=== PATIENT | female | born 2000 | race Caucasian/White ===

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

== ENCOUNTER 2021-11-06 13:08 | Inpatient (IN) ==
[2021-11-06 14:14] LABS: Urine Benzodiazepine Screen None Detected (None Detect); Urine Cannabinoids Screen None Detected (None Detect); Urine Opiates Screen None Detected (None Detect)
[2021-11-06] MEDS ORDERED: Lactated Ringers 1000 ml BAG 1,000 ML IV ONE (14:19)
[2021-11-06] MEDS ORDERED: Buffered Lidocaine 1% SYRIN 1 ml INTRADERM ONE (14:19)
[2021-11-06] MEDS ORDERED: Lactated Ringers 1000 ml BAG 1,000 ML IV SCH (15:00)
[2021-11-06] MEDS: Buprenorp/Nalox 8-2 MG SL TAB SL SCH (16:30)
[2021-11-06 17:27] LABS: ABS Basophils 0.1 10^3/ul (0-0.2); ABS Eosinophils 0.1 10^3/ul (0-0.6); ABS Lymphocytes 2.3 10^3/ul (1.0-4.8); ABS Monocytes 0.7 10^3/ul (0-0.8); ABS Neutrophils 7.4 10^3/ul (1.5-7.7); Eosinophil % 0.8 %; Hematocrit 37 % (35-47); Hemoglobin 12.7 g/dL (12.0-16.0); Lymphocyte % 21.7 %; Mean Corpuscular HGB Conc 35 g/dL (31-36); Mean Corpuscular Hemoglobin 32 pg (27-31); Mean Corpuscular Volume 91 fL (80-97); Mean Platelet Volume 8.3 fL (7.4-10.4); Nucleated Red Blood Cells % 0.1; Platelet Count 202 10^3/uL (150-450); Red Blood Count 4.02 10^6 /uL (3.70-4.87); Red Cell Distribution Width 14 % (10-15); White Blood Count 10.6 10^3/uL (3.5-10.8)
[2021-11-06] MEDS: Nicotine PATCH 7 MG/24 HR PATCH TRANSDERM SCH (20:06)
[2021-11-06] MEDS ORDERED: OBEPIDURAL 250 ML EPIDURAL ONE (23:04)
[2021-11-06] MEDS ORDERED: Lidocaine 2% w/ EPI 1:200,000 MPF 20 ML SDV VIAL ONE (23:39)
[2021-11-07] MEDS: Buprenorp/Nalox 8-2 MG SL TAB SL SCH ×4 (00:02→21:14)
[2021-11-07 02:04] LABS: Urine Appearance Cloudy; Urine Color Yellow; Urine Ketones Negative (Negative); Urine Protein 2+(100 mg/dL) (Negative); Urine Specific Gravity 1.005 (1.002-1.030); Urine Urobilinogen Negative (Negative)
[2021-11-07 02:05] LABS: Urine Bilirubin 1+ (Negative); Urine Blood 2+ (Negative); Urine Glucose Negative (Negative); Urine Nitrite Negative (Negative)
[2021-11-07 02:08] LABS: Urine Bacteria Absent (Absent); Urine Red Blood Cell 3+(>10/hpf) (Absent); Urine Squamous Epithelial Cell Present (Absent); Urine White Blood Cell Trace(0-5/hpf) (Absent)
[2021-11-07] MEDS ORDERED: fentaNYL 100 mcg/2 ml 50 MCG/ML VIAL ONE (08:54)
[2021-11-07] MEDS ORDERED: Oxytocin in LR 20 UNITS/1,000 ML BAG IVPB ONE (09:29)
[2021-11-07] MEDS ORDERED: Lactated Ringers 1000 ml BAG 1,000 ML IV SCH (13:00)
[2021-11-07] MEDS ORDERED: Oxytocin in LR 20 UNITS/1,000 ML BAG IVPB SCH (13:00)
[2021-11-07] MEDS: Nicotine PATCH 7 MG/24 HR PATCH TRANSDERM SCH (14:05)
[2021-11-07] MEDS: Dibucaine 1% OINT 28.35 GM TUBE PR PRN (14:31)
[2021-11-07] MEDS: Witch Hazel PAD JAR TOPICAL PRN (14:31)
[2021-11-07] MEDS ORDERED: Lidocaine 1% VIAL 10 MG/ML VIAL ONE (15:47)
[2021-11-08 07:54] LABS: ABS Basophils 0.1 10^3/ul (0-0.2); ABS Lymphocytes 2.7 10^3/ul (1.0-4.8); ABS Monocytes 0.7 10^3/ul (0-0.8); ABS Neutrophils 8.9 10^3/ul (1.5-7.7); Eosinophil % 0.3 %; Hematocrit 33 % (35-47); Hemoglobin 11.1 g/dL (12.0-16.0); Lymphocyte % 21.3 %; Mean Corpuscular HGB Conc 34 g/dL (31-36); Mean Corpuscular Hemoglobin 32 pg (27-31); Mean Corpuscular Volume 93 fL (80-97); Mean Platelet Volume 8.1 fL (7.4-10.4); Platelet Count 173 10^3/uL (150-450); Red Blood Count 3.53 10^6 /uL (3.70-4.87); Red Cell Distribution Width 14 % (10-15); White Blood Count 12.4 10^3/uL (3.5-10.8)
[2021-11-08] MEDS: Nicotine PATCH 7 MG/24 HR PATCH TRANSDERM SCH (09:09)
[2021-11-08] MEDS: Buprenorp/Nalox 8-2 MG SL TAB SL SCH ×2 (09:11→16:16)
[2021-11-08] MEDS: Dibucaine 1% OINT 28.35 GM TUBE PR PRN ×2 (12:18→16:32)
[2021-11-08 12:40] VITALS: BP 127/77
[2021-11-08] MEDS: Witch Hazel PAD JAR TOPICAL PRN (16:32)
== END 2021-11-08 18:37 | disposition home or self-care (01) | DRG 560 ==
LOC: MCHOBOUT 13:08 → MCHOB 14:15
PROVIDERS: ADMIT Midwife; ATTEND Midwife

== ENCOUNTER 2024-10-23 21:47 | Inpatient (IN) ==
[2024-10-23] MEDS ORDERED: Lidocaine 1% VIAL 10 MG/ML 30 ML VIAL INJ PRN (23:15)
[2024-10-24] MEDS: Lactated Ringers 1000 ml BAG 1,000 ML IV ONE ×2 (00:16→20:41)
[2024-10-24] MEDS: Penicillin G Potassium IV 5,000,000 UNITS in NS 0.9% 100 ml BAG 100 ML IVPB ONE (00:16)
[2024-10-24] MEDS: Buffered Lidocaine 1% SYRIN 1 ml INTRADERM ONE (00:18)
[2024-10-24 00:28] LABS: ABS Basophils 0.1 10^3/uL (0.0-0.1); ABS Eosinophils 0.1 10^3/uL (0.0-0.5); ABS Lymphocytes 2.8 10^3/uL (1.0-4.8); ABS Monocytes 0.5 10^3/uL (0.0-0.9); ABS Neutrophils 5.6 10^3/uL (1.5-7.6); Eosinophil % 1.6 %; Hematocrit 38.8 % (35-45); Hemoglobin 13.2 g/dL (11.5-14.3); Lymphocyte % 30.7 %; Mean Corpuscular Hemoglobin 32.2 pg (27-33); Mean Corpuscular Hgb Conc 34.2 g/dL (31-36); Mean Corpuscular Volume 94.2 fL (80-97); Mean Platelet Volume 7.6 fL (7.5-11.2); Platelet Count 231 10^3/uL (150-450); Red Blood Count 4.12 10^6/uL (3.63-4.92); Red Cell Distribution Width 14.2 % (12-17)
[2024-10-24] MEDS: Dinoprostone 10 MG VAG.SUPP VAGINAL ONE (00:28)
[2024-10-24 00:47] LABS: Urine Benzodiazepine Screen None Detected (None Detect); Urine Cannabinoids Screen None Detected (None Detect); Urine Opiates Screen None Detected (None Detect)
[2024-10-24 01:13] LABS: Albumin 3.3 g/dL (3.5-5.7); Albumin/Globulin Ratio 1.3 (1-3); Calcium 8.3 mg/dL (8.6-10.3); Creatinine, Serum 0.49 mg/dL (0.51-0.95); Globulin 2.5 g/dL (2-4); Potassium 3.7 mmol/L (3.5-5.0); Total Bilirubin 0.3 mg/dL (0.2-1.0); Total Protein 5.8 g/dL (6.4-8.9); eGFR CKD-EPI 134.9 (>60)
[2024-10-24] MEDS: Penicillin G Potassium IV 3,000,000 UNITS in NS 0.9% 100 ml BAG 100 ML IVPB SCH ×2 (06:14→06:19)
[2024-10-24] MEDS ORDERED: Phenylephrine 40 mcg/mL 10mL (400mcg) SYRINGE ONE (07:50)
[2024-10-24] MEDS ORDERED: Lidocaine/Epinephrin 1.5%/200 5 ML AMP INJ ONE (07:50)
[2024-10-24] MEDS: Lactated Ringers 1000 ml BAG 1,000 ML IV SCH ×2 (08:36→20:41)
[2024-10-24] MEDS: OBEPIDURAL (200 ML) 200 ML EPIDURAL ONE (08:36)
[2024-10-24] MEDS ORDERED: Phenylephrine 40 mcg/mL 10mL (400mcg) SYRINGE IV PUSH PRN ×2 (08:41)
[2024-10-24] MEDS ORDERED: Sodium Citrate/Citric Acid LIQ 15 ML UDC PO PRN (08:41)
[2024-10-24] MEDS ORDERED: Measles, Mumps,Rubella VACC 0.5 ML/VIAL SUBCUT ONE (09:18)
[2024-10-24] MEDS ORDERED: Glycerin ADULT 2.4 gm SUPP PR PRN (09:18)
[2024-10-24 09:54] LABS: Urine Appearance Clear; Urine Bilirubin Negative (Negative); Urine Blood Negative (Negative); Urine Color Yellow; Urine Glucose Negative (Negative); Urine Ketones Negative (Negative); Urine Nitrite Negative (Negative); Urine Protein Negative (Negative); Urine Specific Gravity 1.026 (1.002-1.030); Urine Urobilinogen Negative (Negative); Urine pH 6.5 (5.0-8.0)
[2024-10-24] MEDS: Dibucaine 1% OINT 28.35 GM TUBE PR PRN (11:59)
[2024-10-24] MEDS: Witch Hazel PAD JAR TOPICAL PRN (11:59)
[2024-10-24] MEDS ORDERED: Buprenorp/Nalox 8-2 MG SL TAB SL SCH (14:00)
[2024-10-24] MEDS ORDERED: GABAPENTIN 800 MG PO SCH (14:00)
[2024-10-24] MEDS: Oxytocin in LR 20,000 MILLI.UNIT/1,000 ML BAG IV ONE (20:41)
[2024-10-24] MEDS: OBEPIDURAL (200 ML) 200 ML EPIDURAL SCH (20:41)
[2024-10-24] MEDS: Oxytocin in LR 20,000 MILLI.UNIT/1,000 ML BAG IV SCH (20:42)
[2024-10-25 10:00] LABS: ABS Basophils 0.1 10^3/uL (0.0-0.1); ABS Eosinophils 0.2 10^3/uL (0.0-0.5); ABS Lymphocytes 3.5 10^3/uL (1.0-4.8); ABS Monocytes 0.6 10^3/uL (0.0-0.9); ABS Neutrophils 4.6 10^3/uL (1.5-7.6); Eosinophil % 1.8 %; Hematocrit 34.7 % (35-45); Hemoglobin 11.8 g/dL (11.5-14.3); Mean Corpuscular Hemoglobin 31.8 pg (27-33); Mean Corpuscular Volume 93.6 fL (80-97); Mean Platelet Volume 7.4 fL (7.5-11.2); Platelet Count 190 10^3/uL (150-450); Red Blood Count 3.71 10^6/uL (3.63-4.92); Red Cell Distribution Width 14.1 % (12-17)
[2024-10-25] MEDS: Nicotine PATCH 14 MG/24 HR PATCH TRANSDERM SCH (10:21)
[2024-10-26 08:30] VITALS: BP 106/78
== END 2024-10-26 16:18 | disposition home or self-care (01) | DRG 560 ==
LOC: MCHOBOUT 21:47 → MCHOB 22:32
PROVIDERS: ATTEND Midwife